=== PATIENT | male | born 1965 | race African-American/Black ===

== ENCOUNTER 2021-11-27 13:48 | Emergency (ER) | payer BC ==
[2021-11-27] MEDS ORDERED: Morphine 4 MG/ML VIAL ONE (15:51)
[2021-11-27] MEDS ORDERED: Ketorolac Tromethamine 30 MG/ML VIAL ONE (18:28)
== END 2021-11-27 18:28 | disposition home or self-care (01) ==
LOC: CSHERS 13:48
DX: S76.011A Strain of muscle, fascia and tendon of right hip, initial encounter (principal); I10 Essential (primary) hypertension; E78.5 Hyperlipidemia, unspecified; E11.9 Type 2 diabetes mellitus without complications; I48.91 Unspecified atrial fibrillation; Z79.84 Long term (current) use of oral hypoglycemic drugs; F17.210 Nicotine dependence, cigarettes, uncomplicated
CPT/HCPCS: 96372; J1885; J2270

== ENCOUNTER 2023-12-18 09:22 | Outpatient (CLI) | payer OTHER | END 2023-12-18 09:23 | disposition home or self-care (01) | LOC: CSHWCC 09:22 | PROVIDERS: ATTEND Physician Assistant | DX: S11.90XD Unspecified open wound of unspecified part of neck, subsequent encounter (principal); E11.622 Type 2 diabetes mellitus with other skin ulcer | CPT/HCPCS: 97607; 99213; G0463 ==

== ENCOUNTER 2023-12-22 13:05 | Outpatient (CLI) | payer OTHER | END 2023-12-22 13:06 | disposition home or self-care (01) | LOC: CSHWCC 13:05 | PROVIDERS: ATTEND Physician Assistant | DX: S11.90XD Unspecified open wound of unspecified part of neck, subsequent encounter (principal); E11.622 Type 2 diabetes mellitus with other skin ulcer; L98.499 Non-pressure chronic ulcer of skin of other sites with unspecified severity | CPT/HCPCS: 97605 ==

== ENCOUNTER 2023-12-25 13:12 | Outpatient (CLI) | payer OTHER | END 2023-12-25 13:13 | disposition home or self-care (01) | LOC: CSHWCC 13:12 | PROVIDERS: ATTEND Physician Assistant | DX: S11.90XD Unspecified open wound of unspecified part of neck, subsequent encounter (principal); E11.622 Type 2 diabetes mellitus with other skin ulcer | CPT/HCPCS: 97605 ==

== ENCOUNTER 2023-12-29 12:44 | Outpatient (CLI) | payer OTHER | END 2023-12-29 12:45 | disposition home or self-care (01) | LOC: CSHWCC 12:44 | PROVIDERS: ATTEND Nurse Practitioner Family | DX: S11.90XD Unspecified open wound of unspecified part of neck, subsequent encounter (principal); E11.622 Type 2 diabetes mellitus with other skin ulcer | CPT/HCPCS: 36416; 97605 ==

== ENCOUNTER 2024-01-02 13:29 | Outpatient (CLI) | payer OTHER | END 2024-01-02 13:30 | disposition home or self-care (01) | LOC: CSHWCC 13:29 | PROVIDERS: ATTEND Nurse Practitioner Family | DX: S11.90XD Unspecified open wound of unspecified part of neck, subsequent encounter (principal); E11.622 Type 2 diabetes mellitus with other skin ulcer; L98.499 Non-pressure chronic ulcer of skin of other sites with unspecified severity | CPT/HCPCS: 97605 ==

== ENCOUNTER → 2024-01-03 | Outpatient (CLI) | payer OTHER | LOC: CSHWCC 16:00 | PROVIDERS: ATTEND Nurse Practitioner Family | DX: S11.90XD Unspecified open wound of unspecified part of neck, subsequent encounter (principal); E11.622 Type 2 diabetes mellitus with other skin ulcer; L98.499 Non-pressure chronic ulcer of skin of other sites with unspecified severity | CPT/HCPCS: 97607 ==

== ENCOUNTER 2024-01-05 12:12 | Outpatient (CLI) | payer OTHER | END 2024-01-05 12:13 | disposition home or self-care (01) | LOC: CSHWCC 12:12 | PROVIDERS: ATTEND Nurse Practitioner Family | DX: S11.90XD Unspecified open wound of unspecified part of neck, subsequent encounter (principal); E11.622 Type 2 diabetes mellitus with other skin ulcer; L98.499 Non-pressure chronic ulcer of skin of other sites with unspecified severity | CPT/HCPCS: 11042 ==